=== PATIENT | female | born 1940 | race Caucasian/White ===

== ENCOUNTER → 2021-06-01 | Outpatient (CLI) | payer OTHER ==
[~2021-06-01] VITALS: Ht 160 cm; Wt 88.5 kg
[2021-06-01] MEDS: REGADENOSON 0.4 MG/5 ML PF SYG IVP SCH (12:47)
== END | disposition home or self-care (01) ==
LOC: SHCH 08:57
PROVIDERS: ATTEND Internal Medicine
DX: R06.02 Shortness of breath (principal); R06.00 Dyspnea, unspecified; R42 Dizziness and giddiness
CPT/HCPCS: 78452; 93017; 96374; A9500 ×2; J2785

== ENCOUNTER → 2023-12-25 | Outpatient (CLI) | payer OTHER ==
[2023-12-25 12:14] LABS: BASOPHILS # (AUTO) 0.03 K/uL (0.00-0.20); BASOPHILS % (AUTO) 0.4 % (0.0-5.0); EOSINOPHILS # (AUTO) 0.15 K/uL (0.00-0.70); HEMATOCRIT 37.4 % (36-48); IMMATURE GRANULOCYTE ABSOLUTE 0.02 K/uL (0-1); LYMPHOCYTES # (AUTO) 1.5 K/uL (1.0-4.8); LYMPHOCYTES % (AUTO) 20.6 % (21.0-51.0); MEAN CORPUSCULAR HEMOGLOBIN 25.6 pg (27.0-33.0); MEAN CORPUSCULAR HGB CONC 31.6 g/dL (32.0-36.0); MEAN CORPUSCULAR VOLUME 81.1 fL (79-99); MONOCYTES # (AUTO) 0.6 K/uL (0.1-1.0); MONOCYTES % (AUTO) 8.7 % (3.0-13.0); PLATELET COUNT (AUTO) 232 K/uL (130-400); RED BLOOD CELL COUNT(AUTO) 4.61 MIL/uL (4.00-5.50); RED CELL DISTRIBUTION WIDTH 19.7 % (11.0-15.5); WHITE BLOOD COUNT (AUTO) 7.3 K/uL (4.8-10.8)
[2023-12-25 12:24] LABS: INR 1.01 (0.85-1.15); PROTHROMBIN TIME 10.9 SEC (9.6-11.6)
[2023-12-25 12:43] LABS: ALBUMIN 3.5 g/dL (3.5-5.0); BILIRUBIN,TOTAL 0.3 mg/dL (0.2-1.0); TOTAL PROTEIN, SERUM 7.4 g/dL (6.0-8.3)
== END | disposition home or self-care (01) ==
LOC: LAB 11:08
PROVIDERS: ATTEND Internal Medicine
DX: C18.2 Malignant neoplasm of ascending colon (principal); K57.90 Diverticulosis of intestine, part unspecified, without perforation or abscess without bleeding; K21.9 Gastro-esophageal reflux disease without esophagitis
CPT/HCPCS: 36415; 80053; 82378; 85025; 85610

== ENCOUNTER → 2023-12-27 | Outpatient (CLI) | payer OTHER ==
[~2023-12-27] MED LIST: IOHEXOL 350 MG/ML 100ML INFUS..BTL IV ONE
== END | disposition home or self-care (01) ==
LOC: RAH 08:55
PROVIDERS: ATTEND Internal Medicine
DX: C18.2 Malignant neoplasm of ascending colon (principal); K21.9 Gastro-esophageal reflux disease without esophagitis
CPT/HCPCS: 71260; 74177; Q9967

== ENCOUNTER 2024-12-31 06:13 | Day surgery (SDC) | payer OTHER ==
[2024-12-31] VITALS (10 sets, daily range): BP systolic 90–164; BP diastolic 44–91; PULSE 71–85; RESP 16–18; TEMP 96.9–97.4
[~2024-12-31] VITALS: Ht 160 cm; Wt 80.3 kg
[~2024-12-31 06:13] MED LIST changes: +BACITRA TP; +EMPA10TA PO; +FERR-82 PO; +GLIM4TAB36 PO; -IOHEXOL 350 MG/ML 100ML INFUS..BTL IV ONE; +LOSA50TA64 PO; +NEOMY SULF TP; +POLYMYXIN B TP
[2024-12-31] MEDS: 0.9%NACL 1000ML 1,000 ML IV ONE (07:02)
[2024-12-31] MEDS ORDERED: EMPA25TA PO (07:05)
[2024-12-31] MEDS ORDERED: VIT1CAPS47 PO (07:05)
[2024-12-31] MEDS ORDERED: ATOR10 PO (07:05)
[2024-12-31] MEDS ORDERED: CHOL2000 PO (07:05)
[2024-12-31] MEDS ORDERED: BISM262T15 PO (07:05)
[2024-12-31] MEDS ORDERED: GLIP5TAB15 PO (07:05)
== END 2024-12-31 10:10 | disposition home or self-care (01) ==
LOC: ENDO 06:13 → DAH 06:13 → ENDO 10:10
PROVIDERS: ATTEND Surgery
DX: Z08 Encounter for follow-up examination after completed treatment for malignant neoplasm (principal); K62.1 Rectal polyp; K64.1 Second degree hemorrhoids; I10 Essential (primary) hypertension; E11.9 Type 2 diabetes mellitus without complications; E78.00 Pure hypercholesterolemia, unspecified; K64.4 Residual hemorrhoidal skin tags; Z85.038 Personal history of other malignant neoplasm of large intestine; Z98.890 Other specified postprocedural states; Z98.0 Intestinal bypass and anastomosis status; Z79.899 Other long term (current) drug therapy
CPT/HCPCS: 82948; 45380; 45385; J7030 ×2; J2704 ×2; A4620; A4215; A4223; A7002; A4222; A4221; A4663; A4606; J3490